=== PATIENT | male | born 1975 | race African-American/Black ===

== ENCOUNTER 2025-07-27 08:09 | Emergency (ER) | payer BC ==
[~2025-07-27] VITALS: Ht 172.7 cm; Wt 64.0 kg
[2025-07-27 08:11] VITALS: O2SAT 100
[2025-07-27] MEDS: SODIUM CHLORIDE 0.9% 1,000 ML IV ONE (08:46)
[2025-07-27 08:55] LABS: BASOPHILS % 0.4 % (0.0-2.0); EOSINOPHILS % 0.5 % (0.0-5.0); HEMATOCRIT. 44.7 % (42.0-52.0); HEMOGLOBIN. 14.9 g/dL (14.0-18.0); LYMPHOCYTES % 33.4 % (20.0-50.0); MEAN PLATELET VOLUME 6.9 fl (7.4-10.4); MONOCYTES % 7.6 % (2.0-8.0); NEUTROPHILS % 58.1 % (40.0-76.0); PLATELET 329 x1000/uL (130-400); RED BLOOD CELL COUNT 4.62 mill/uL (4.7-6.1); RED CELL DISTRIBUTION WIDTH 13.1 % (11.6-14.6)
[2025-07-27 09:08] LABS: CREATININE 1.0 mg/dL (0.6-1.3)
[2025-07-27 09:09] LABS: ETHANOL BLOOD < 10 mg/dL (<10); PROTEIN TOTAL 7.4 g/dL (6.0-8.3); TROPONIN I HIGH SENSITIVITY < 4 ng/L (3.0-53); UREA NITROGEN BLOOD 10 mg/dL (9-23)
[2025-07-27 09:10] LABS: ASPARTATE AMINOTRANSFERASE 25 IU/L (<34); BILIRUBIN DIRECT < 0.1 mg/dL (<=3.0)
[2025-07-27 09:11] LABS: BILIRUBIN TOTAL 0.3 mg/dL (0.1-1.0)
[2025-07-27] MEDS: LORAZEPAM 0.5MG TABLET PO ONE (09:39)
[2025-07-27] MEDS: MAGNESIUM 2 G PREMIX 50 ML IV ONE (09:40)
[2025-07-27 11:18] LABS: *AMPHETAMINES SCREEN URINE NEGATIVE (NEGATIVE); *BARBITURATES SCREEN URINE NEGATIVE (NEGATIVE); *BENZODIAZEPINES SCREEN URINE NEGATIVE (NEGATIVE); *COCAINE SCREEN URINE NEGATIVE (NEGATIVE); METHADONE URINE SCREEN NEGATIVE (NEGATIVE)
[2025-07-27 11:19] LABS: CANNABINOID URINE SCREEN NEGATIVE (NEGATIVE); ECSTASY MDMA SCREEN URINE NEGATIVE (NEGATIVE); OPIATES URINE SCREEN NEGATIVE (NEGATIVE); PHENCYCLIDINE URINE SCREEN NEGATIVE (NEGATIVE)
[2025-07-27 11:58] LABS: TROPONIN I HIGH SENSITIVITY < 4 ng/L (3.0-53)
[2025-07-27 12:51] VITALS: BP 158/89; PULSE 77; RESP 16; TEMP 36.9; O2SAT 100
== END 2025-07-27 12:53 | disposition home or self-care (01) ==
LOC: ER 08:09
DX: F41.9 Anxiety disorder, unspecified (principal); Z79.899 Other long term (current) drug therapy
CPT/HCPCS: 80076; 80305; 80048; 80320; 83735; 85025; 84484; 36415; 71045; 93005; 96361; 96365; 99285; J3475; J7030; G0480